=== PATIENT | female | born 1990 | race Caucasian/White ===

== ENCOUNTER 2021-07-24 11:55 | Emergency (ER) | payer BC ==
[~2021-07-24] VITALS: Ht 172.7 cm; Wt 78.0 kg
[2021-07-24] MEDS ORDERED: ONDANSETRON PF 4 MG/2 ML VIAL. IVP ONE (12:15)
[2021-07-24] MEDS ORDERED: IV NORMAL SALINE 1,000ML 1,000 ML IV ONE (12:15)
--- NOTE | 2021-07-24 12:18 | PHYS DOC ---
General Adult EDM: Chief Complaint: ABDOMINAL PAIN HPI: HPI: Patient is a 30-year-old female coming in for 3 days of abdominal pain. Patient states the pain was originally around her bellybutton but is moved down to her lower abdomen into the right. States the pain is constant but is more sharp with movement or palpation. Has decreased appetite. States she is also had some diarrhea for the past few days. Denies any dysuria, hematuria. Currently on her menstrual cycle. Denies any vaginal bleeding or discharge. Last p.o. intake about 3 hours prior to arrival. Has not had a Covid vaccine Review of Systems: Review of Systems: All other systems within normal limits except for as noted in the HPI Physical Exam: PE: Constitutional: Well developed, well nourished, no acute distress, non-toxic appearance. [] HENT: Normocephalic, atraumatic, bilateral external ears normal, nose normal. [] Eyes: PERRLA, conjunctiva normal, no discharge. [] Neck: No rigidity, supple, no stridor. [] Cardiovascular: Regular rate and rhythm, brisk cap refill [] Lungs & Thorax: Non labored symmetric respirations, no tachypnea or respiratory distress [] Abdomen: Soft, nondistended, positive Rovsing sign, positive McBurney point tenderness, negative Bishop's.. Skin: Warm, dry, no erythema, no rash. [] Back: Unremarkable Extremities: No deformities, range of motion grossly intact, no lower extremity edema [] Neurologic: Alert and oriented X 3, no focal deficits noted. [] Psychologic: Affect normal, judgement normal, mood normal. [] EKG: EKG: [] Radiology/Procedures: Radiology/Procedures: [address] [address] IMAGING REPORT Signed PATIENT: SANTA MCGEE ACCOUNT: [id number] : 1990 LOCATION: ER AGE: 30 SEX: F EXAM STATUS: REG ER ORD. PHYSICIAN: DARYL BINGHAM MD REASON: RLQ pain PROCEDURE: CT ABD PELV W/ IV CONTRST ONLY CT STUDY OF THE ABDOMEN AND PELVIS WITH CONTRAST Clinical indications: Right lower quadrant abdominal pain. TECHNIQUE: After IV infusion of contrast, helical CT scanning of the abdomen and pelvis was performed. GI contrast was not administered. This may decrease the sensitivity to detect GI tract pathology. PQRS COMPLIANCE STATEMENT One or more of the following individualized dose reduction techniques were utilized for this study: 1. Automated exposure control 2. Adjustment of the mA and/or kV according to patient size 3. Use of iterative reconstruction technique COMPARISON: None available. FINDINGS: The liver and spleen and pancreas and gallbladder are normal. No extrahepatic biliary ductal dilatation is seen. No adrenal mass is evident. Both kidneys are normal without hydronephrosis or hydroureter. Urinary bladder wall is smooth. Pessary device or diaphragm is seen within the vaginal vault. Uterus is retroverted. No dominant ovarian cyst or mass is seen. Small amount of free f luid within the cul-de-sac. No focal aneurysmal dilatation of the abdominal aorta is seen. No enlarged abdominal or pelvic lymphadenopathy is apparent. The terminal ileum is unremarkable. The appendix is distended measuring up to 14 mm. There is wall thickening and enhancement of the appendix. There is a small amount of periappendiceal fluid and inflammation. Findings are consistent with appendicitis. No obstructive bowel pattern is seen. No free air is seen. No lung base consolidation is evident. No lytic process is seen. IMPRESSION: Appendicitis. Electronically signed by: Mario Cross MD (07/24/2021 1:19 PM) [id number] DICTATED AND SIGNED BY: MARIO CROSS MD DATE: 07/24/21 1309 CC: DARYL BINGHAM MD; NON,STAFF ~MTH0 0 [] Heart Score: C/O Chest Pain: No Risk Factors: Risk Factors: DM, Current or recent (<one month) smoker, HTN, HLP, family history of CAD, obesity. Risk Scores: Score 0 - 3: 2.5% MACE over next 6 weeks - Discharge Home Score 4 - 6: 20.3% MACE over next 6 weeks - Admit for Clinical Observation Score 7 - 10: 72.7% MACE over next 6 weeks - Early Invasive Strategies Course & Med Decision Making: Course & Med Decision Making Consult placed to surgery, Dr. Rodriguez, and hospitalist, Dr. Schwab, who will accept patient care at [facility]. Patient transported in stable condition via EMS [facility] Disclaimer: [employer] Disclaimer: This electronic medical record was generated, in whole or in part, using a voice recognition dictation system. Departure Departure: Impression: Primary Impression: Appendicitis Disposition: 02 SHORT TERM HOSPITAL Condition: STABLE Referrals: NON,STAFF (PCP) DARYL BINGHAM MD Jul 24, 2021 12:18
[2021-07-24] MEDS ORDERED: IOHEXOL 300 MG/ML 75 ML VIAL. IV ONE (12:30)
[2021-07-24 12:37] LABS: BASO % 0 % (0-3); EOS % 0 % (0-3); HEMOGLOBIN 13.4 g/dL (12.0-15.5); LYMPH # 2.4 x10^3/uL (1.0-4.8); LYMPH % 23 % (24-48); MEAN CORPUSCULAR HEMOGLOBIN 33 pg (25-35); MEAN CORPUSCULAR HGB CONC 35 g/dL (31-37); MEAN CORPUSCULAR VOLUME 95 fL (79-100); MONO # 0.9 x10^3/uL (0.0-1.1); MONO % 9 % (0-9); NEUT % 68 % (31-73); PLATELET COUNT 226 x10^3/uL (140-400); RED BLOOD COUNT 4.09 x10^6/uL (3.50-5.40); RED CELL DISTRIBUTION WIDTH 13.3 % (11.5-14.5); WHITE BLOOD COUNT 10.2 x10^3/uL (4.0-11.0)
[2021-07-24 12:45] LABS: CALCIUM 8.6 mg/dL (8.5-10.1); CREATININE 0.8 mg/dL (0.6-1.0); GFR 84.2; POTASSIUM 3.5 mmol/L (3.5-5.1)
[2021-07-24] MEDS ORDERED: CONTRAST GIVEN. MC PRN (12:45)
[2021-07-24 12:49] LABS: BILIRUBIN,URINE NEG (NEG); CLARITY,URINE CLEAR; COLOR,URINE YELLOW; GLUCOSE,URINE NEG (NEG)
[2021-07-24 12:50] LABS: BACTERIA,URINE 0 /HPF (0-FEW); NITRITE,URINE NEG (NEG); RBC,URINE 0 /HPF (0-2); SQUAMOUS EPITHELIAL CELL,UR MOD /LPF; UROBILINOGEN,URINE 0.2 mg/dL (0.2 mg/dL); WBC,URINE 0 /HPF (0-4)
[2021-07-24 12:51] LABS: ALBUMIN 3.9 g/dL (3.4-5.0); ALBUMIN/GLOBULIN RATIO 1.1 (1.0-1.7); TOTAL BILIRUBIN 0.3 mg/dL (0.2-1.0); TOTAL PROTEIN 7.3 g/dL (6.4-8.2)
--- NOTE | 2021-07-24 13:22 | RAD ---
CT STUDY OF THE ABDOMEN AND PELVIS WITH CONTRAST Clinical indications: Right lower quadrant abdominal pain. TECHNIQUE: After IV infusion of contrast, helical CT scanning of the abdomen and pelvis was performed . GI contrast was not administered. This may decrease the sensitivity to detect GI tract pathology. PQRS COMPLIANCE STATEMENT One or more of the following individualized dose reduction techniques were utilized for this study: 1. Automated exposure control 2. Adjustment of the mA and/or kV according to patient size 3. Use of iterative reconstruction technique COMPARISON: None available. FINDINGS: The liver and spleen and pancreas and gallbladder are normal. No extrahepatic biliary ducta l dilatation is seen. No adrenal mass is evident. Both kidneys are normal without hydronephrosis or h ydroureter. Urinary bladder wall is smooth. Pessary device or diaphragm is seen within the vaginal va ult. Uterus is retroverted. No dominant ovarian cyst or mass is seen. Small amount of free fluid with in the cul-de-sac. No focal aneurysmal dilatation of the abdominal aorta is seen. No enlarged abdomin al or pelvic lymphadenopathy is apparent. The terminal ileum is unremarkable. The appendix is distend ed measuring up to 14 mm. There is wall thickening and enhancement of the appendix. There is a small amount of periappendiceal fluid and inflammation. Findings are consistent with appendicitis. No obstr uctive bowel pattern is seen. No free air is seen. No lung base consolidation is evident. No lytic pr ocess is seen. IMPRESSION: Appendicitis. Electronically signed by: Timoteo Cross MD (07/24/2021 1:19 PM) [id number]
[2021-07-24 14:02] VITALS: BP 122/71
== END 2021-07-24 14:28 | disposition short-term general hospital (02) ==
LOC: ER 11:55
DX: K37 Unspecified appendicitis (principal); Z20.822 Contact with and (suspected) exposure to COVID-19
CPT/HCPCS: 36415; 74177; 80053; 81001; 81025; 83690; 85025; 87426; 96361; 96374; 96375; 96376; 99285; C9803; J2405; J3010; J7030; Q9967; U0003